=== PATIENT | male | born 1990 | race Caucasian/White ===

== ENCOUNTER 2019-04-12 01:35 | Emergency (ER) | payer OTHER ==
[~2019-04-12] VITALS: Ht 172.7 cm; Wt 57.2 kg
--- NOTE | 2019-04-12 01:35 | NUR ---
PT [facility]. TAKEN TO BED 7
[2019-04-12 01:37] VITALS: BP 115/76
--- NOTE | 2019-04-12 01:40 | NUR ---
Dr. Mishra examining patient.
--- NOTE | 2019-04-12 01:41 | NUR ---
pt presents w/c/o vomiting since yesterday associated with chills and "flu like symptoms." pt vomiting upon arrival. was given zofran po en route. pt aaox4, gcs 15. rr even/unlabored. skin warm and dry touch. nka no hx
[2019-04-12] MEDS ORDERED: POTASSIUM CHL 20 MEQ/NACL 0.9% 1,000 ML IV ONE (01:50)
[2019-04-12] MEDS ORDERED: NACL 0.9% 1,000 ML IV ONE ×2 (01:50→03:40)
[2019-04-12] MEDS ORDERED: KETOROLAC 30 MG/ML VIAL IVP ONE (01:50)
[2019-04-12] MEDS ORDERED: ONDANSETRON 4 MG/2 ML VIAL IVP ONE (01:50)
[2019-04-12 02:02] LABS: HEMATOCRIT 47.3 % (36-52); MEAN CORPUSCULAR HEMOGLOBIN 31 pg (27-31); MEAN CORPUSCULAR HGB CONC 34 g/dL (33-37); MEAN CORPUSCULAR VOLUME 90.9 fL (80-94); PLATELET COUNT (AUTO) 203 K/uL (140-450); RED CELL DISTRIBUTION WIDTH 12.6 % (11.6-13.7); WHITE BLOOD COUNT (AUTO) 15.4 K/uL (4.8-10.8)
[2019-04-12 02:13] LABS: ANION GAP 19.5 (8-16); CARBON DIOXIDE 22.3 mmol/L (21-32); CREATININE 1.1 mg/dL (0.7-1.3); POTASSIUM 3.8 mmol/L (3.5-5.1)
[2019-04-12 02:19] LABS: ALBUMIN 4.6 g/dL (3.4-5.0); TOTAL BILIRUBIN 1.6 mg/dL (0.0-1.0)
[2019-04-12 02:34] LABS: LYMPHOCYTES % (MANUAL) 3 % (20-46); MONOCYTES % (MANUAL) 4 % (5-12)
[2019-04-12 03:27] LABS: BARBITURATE, URINE NEG. ng/ml (NEG <=200); BENZODIAZEPINE, URINE NEG. ng/mL (NEG <=200); CANNABINOID, URINE POS. ng/mL (NEG <=50); COCAINE, URINE NEG. ng/mL (NEG <=300); OPIATE, URINE NEG. ng/mL (NEG <=2000); PHENCYCLIDINE SCREEN,URINE NEG. ng/mL (NEG <=25)
[2019-04-12] MEDS ORDERED: METOCLOPRAMIDE 10 MG/2 ML INJ VIAL IVP ONE (03:40)
[2019-04-12 03:58] LABS: APPEARANCE,URINE CLEAR (CLEAR); BILIRUBIN,URINE 1+ (NEGATIVE); BLOOD, URINE NEGATIVE (NEGATIVE); COLOR,URINE YELLOW (YELLOW); LEUKOCYTE ESTERASE ,URINE NEGATIVE (NEGATIVE); NITRITE, URINE NEGATIVE (NEGATIVE); PH,URINE 8.5 (5.0-9.0); UGLUCOSE NEGATIVE (NEGATIVE)
[2019-04-12 04:16] LABS: RBC,URINE 0-5 /HPF (0-5); WBC,URINE 0-5 /HPF (0-5)
[2019-04-12 04:17] LABS: HYALINE CASTS, URINE 0-10 /LPF (None Seen)
[2019-04-12 04:32] VITALS: BP 118/79
--- NOTE | 2019-04-12 08:32 | NUR ---
Late entry. Confirmed with RN that 1000ml 0.9 NS IV completed at 0430.
== END 2019-04-12 04:33 | disposition home or self-care (01) ==
LOC: MED 01:35
DX: A08.4 Viral intestinal infection, unspecified (principal); R11.10 Vomiting, unspecified; F12.90 Cannabis use, unspecified, uncomplicated; Z98.890 Other specified postprocedural states; Z71.6 Tobacco abuse counseling
CPT/HCPCS: 36415; 80053; 80305; 81001; 82009; 83605; 85025; 96365; 96366; 96375; 99283; J1885; J2405; J2765; J7030